=== PATIENT | female | born 1970 | race Caucasian/White ===

== ENCOUNTER 2018-05-06 21:08 | Emergency (ER) | payer BC ==
[~2018-05-06] VITALS: Ht 157.5 cm; Wt 66.0 kg
[2018-05-06 21:29] VITALS: Ht 157.5 cm; Wt 66.0 kg
--- NOTE | 2018-05-06 22:16 | ERD ---
ER Documentation Chief Complaint Chief Complaint central AP X 3 wks, worse X 2 days HPI This is a 47-year-old female presents for evaluation of epigastric pain, on and off for the last 3 weeks, that has been worse over the last 2 days. Patient reports that she has a prior history of H. pylori, and the symptoms feel similar, she had previously been treated with triple therapy and had improvement, however she is not currently on a PPI. She has no lower abdominal pain, she denies fever, she denies chest pain or shortness of breath. She denies fever. ROS All systems reviewed and are negative except as per history of present illness. Medications Home Meds Active Scripts Amoxicillin Trihydrate (Amoxicillin) 500 Mg Tablet, 1000 MG PO BID for 14 Days, #28 TAB Prov:MARYANA HEALY MD 05/07/18 Clarithromycin* (Clarithromycin*) 500 Mg Tablet, 500 MG PO BID for 14 Days, TAB Prov:MARYANA HEALY MD 05/07/18 Bismuth Subsalicylate* (Pepto-Bismol*) 262 Mg/15 Ml Oral.susp, 30 ML PO Q6H PRN for PAIN for 21 Days, ML Prov:MARYANA HEALY MD 05/07/18 Pantoprazole* (Protonix*) 40 Mg Tablet.dr, 40 MG PO DAILY for 21 Days, #21 TAB Prov:MARYANA HEALY MD 05/07/18 Allergies Allergies: Coded Allergies: No Known Allergy (Unverified , 05/06/18) Physical Exam Vitals Vital Signs Date Temp Pulse Resp B/P (MAP) Pulse Ox O2 O2 Flow FiO2 Time Delivery Rate 05/07/18 82 16 117/90 99 Room Air 01:11 (99) 05/06/18 84 18 145/83 100 Room Air 23:39 (103) 05/06/18 99.0 95 18 168/80 100 21:29 (109) Physical Exam Const: No acute distress Head: Atraumatic Eyes: Normal Conjunctiva ENT: Normal External Ears, Nose and Mouth. Neck: Full range of motion. No meningismus. Resp: Clear to auscultation bilaterally Cardio: Regular rate and rhythm, no murmurs Abd: Soft, non tender, there is mild epigastric tenderness, there is no rebound or guarding, there is no McBurney's point tenderness. Non distended. Normal bowel sounds Skin: No petechiae or rashes Back: No midline or flank tenderness Ext: No cyanosis, or edema Neur: Awake and alert Psych: Normal Mood and Affect Result Diagram: 05/06/18222905/06/182229 Results 24 hrs Laboratory Tests Test 05/06/18 22:30 05/06/18 22:39 White Blood Count 7.1 10^3/ul Red Blood Count 4.84 10^6/ul Hemoglobin 14.0 g/dl Hematocrit 42.4 % Mean Corpuscular Volume 87.6 fl Mean Corpuscular Hemoglobin 28.9 pg Mean Corpuscular Hemoglobin Concent 33.0 g/dl Red Cell Distribution Width 12.7 % Platelet Count 292 10^3/UL Mean Platelet Volume 11.6 fl Immature Granulocytes % 0.100 % Neutrophils % 71.3 % Lymphocytes % 19.9 % Monocytes % 6.9 % Eosinophils % 1.0 % Basophils % 0.8 % Nucleated Red Blood Cells % 0.0 /100WBC Immature Granulocytes # 0.010 10^3/ul Neutrophils # 5.0 10^3/ul Lymphocytes # 1.4 10^3/ul Monocytes # 0.5 10^3/ul Eosinophils # 0.1 10^3/ul Basophils # 0.1 10^3/ul Nucleated Red Blood Cells # 0.0 10^3/ul Urine Color YELLOW Urine Clarity CLEAR Urine pH 5.0 Urine Specific Cody 1.014 Urine Ketones 1+ mg/dL Urine Nitrite NEGATIVE mg/dL Urine Bilirubin NEGATIVE mg/dL Urine Urobilinogen NEGATIVE mg/dL Urine Leukocyte Esterase NEGATIVE Edin/ul Urine Microscopic RBC 3 /HPF Urine Microscopic WBC 1 /HPF Urine Squamous Epithelial Cells FEW /HPF Urine Bacteria FEW /HPF Urine Mucus FEW /HPF Urine Hemoglobin 1+ mg/dL Urine Glucose NEGATIVE mg/dL Urine Total Protein NEGATIVE mg/dl Sodium Level 140 mmol/L Potassium Level 3.6 mmol/L Chloride Level 102 mmol/L Carbon Dioxide Level 27 mmol/L Anion Gap 11 Blood Urea Nitrogen 12 mg/dl Creatinine 0.75 mg/dl Est Glomerular Filtrat Rate mL/min > 60 mL/min Glucose Level 130 mg/dl Calcium Level 9.9 mg/dl Total Bilirubin 0.4 mg/dl Direct Bilirubin 0.00 mg/dl Indirect Bilirubin 0.4 mg/dl Aspartate Amino Transf (AST/SGOT) 23 IU/L Alanine Aminotransferase (ALT/SGPT) 28 IU/L Alkaline Phosphatase 69 IU/L Total Protein 9.1 g/dl Albumin 5.2 g/dl Globulin 3.90 g/dl Albumin/Globulin Ratio 1.33 Lipase 49 U/L POC Beta HCG, Qualitative NEGATIVE Current Medications Medications Dose Sig/Hu Start Time Status Last (Trade) Ordered Route PRN Stop Time Admin Dose Reason Admin Famotidine 20 mg ONCE STAT 05/06/18 DC 05/06/18 (Pepcid) PO 22:17 22:44 05/06/18 22:39 40 ml ONCE STAT 05/06/18 DC 05/06/18 Miscellaneous PO 22:17 22:44 Medication 05/06/18 22:39 (Gi Cocktail (2)) Procedures/MDM Is a 47-year-old female presents for evaluation of epigastric pain. On exam the patient has no peritoneal signs, she has no cardiopulmonary symptoms, and her symptoms are not consistent with an anginal equivalent. Her labs showed no priscilla dence of leukocytosis, and no anion gap acidosis, her LFTs were also within normal limits. Her ultrasound showed no evidence of gallstones, I suspect patient most likely has gastritis, versus peptic ulcer disease, I discussed options for treatment, and the patient was agreeable to start treatment for H. pylori, as she may have not been completely treated previously. I recommend he follow-up with her PMD, at discharge the patient was in no acute distress. Departure Diagnosis: Primary Impression: Abdominal pain Abdominal location: unspecified location Qualified Codes: R10.9 - Unspecified abdominal pain Condition: MARYANA Harris MD May 06, 2018 22:16
[2018-05-06] MEDS ORDERED: LIDOCAINE/MYLANTA 40 ML BTL PO STA (22:17)
[2018-05-06] MEDS ORDERED: FAMOTIDINE 20 MG TAB PO STA (22:17)
[2018-05-07] MEDS ORDERED: BISM262O23 PO (00:44)
[2018-05-07] MEDS ORDERED: CLAR500T PO (00:44)
[2018-05-07] MEDS ORDERED: AMOX500T PO (00:44)
[2018-05-07] MEDS ORDERED: PANT40TA3 PO (00:44)
[2018-05-07 01:11] VITALS: BP 117/90; PULSE 82; RESP 16
== END 2018-05-07 01:18 | disposition home or self-care (01) ==
LOC: E/R 21:08
DX: R10.13 Epigastric pain (principal)
CPT/HCPCS: 36415; 76705; 80053; 81001; 81025; 83690; 85025; 93005